=== PATIENT | male | born 1995 | race Caucasian/White ===

== ENCOUNTER 2017-06-23 11:13 | Emergency (ER) | payer OTHER ==
[~2017-06-23] VITALS: Ht 180.3 cm; Wt 111.1 kg
--- NOTE | ~2017-06-23 | CR20 ---
[facility] A Service of [facility] RADIOLOGY TEXT RESULTS PATIENT: SHAREE HANNA LOCATION: [facility] : [birth year] UNIT #: [id number] AGE: [address]: Roya Reed APRN SEX: M ORDER DR: [id number] [facility] [address] [place], [place] [address] [id number] E MR#: [id number] Acc #: [id number] NAME: SHAREE HANNA : 1995 SEX: M STUDY DATE/TIME: 06/23/2017 11:45 UNIT: [facility] ROOM: STUDY DESCRIPTION: CR Ankle Min 3 Views Lt Attending Physician: Roya Reed A.P.R.N. Ordering Physician: Ed Doctor [id number] [facility] Primary Care Physician: Primary Care Physician No MEDICAL IMAGING REPORT This report is preliminary unless electronic signature is present EXAM Left ankle series, 06/23/2017 HISTORY Rolled ankle. Pain, swelling left ankle lateral side today. Rolled ankle at work. FINDINGS AP lateral oblique radiographs of the left ankle show normal bony mineralization. Normal alignment. No traumatic fracture or malalignment. The ankle mortise joint is intact. No soft tissue defect, subcutaneous air or radiodense foreign body. Dictated by... Jean Paul Vee M.D. THIS IS AN ELECTRONICALLY VERIFIED REPORT Jean Paul Vee M.D. at 06/25/2017 10:01 PM Derek TD: 06/23/2017 15:15 JOB #: [id number] MEDICAL IMAGING REPORT Page 1 of 1 COPY
== END 2017-06-23 12:55 | disposition home or self-care (01) ==
LOC: CED 11:13
DX: S93.402A Sprain of unspecified ligament of left ankle, initial encounter (principal); S80.212A Abrasion, left knee, initial encounter; F17.210 Nicotine dependence, cigarettes, uncomplicated; X50.1XXA Overexertion from prolonged static or awkward postures, initial encounter; Y92.69 Other specified industrial and construction area as the place of occurrence of the external cause; Y93.89 Activity, other specified; Y99.0 Civilian activity done for income or pay
CPT/HCPCS: 29540; 73610; 90471; 90715; 99283